=== PATIENT | female | born 1935 | race Caucasian/White ===

== ENCOUNTER 2018-04-12 05:57 | Inpatient (IN) ==
[2018-04-12] MEDS ORDERED: diphenhydrAMINE CAP 25 MG CAPSULE PO ONE (06:54)
[2018-04-12] MEDS ORDERED: ASPIRIN 325 MG TABLET PO ONE (06:54)
[2018-04-12] MEDS ORDERED: DIAZEPAM 5 MG TABLET PO ONE (06:54)
[2018-04-12] MEDS ORDERED: MAGNESIUM SULF RIDER 2 GM in PREMIX 1 EACH IV PRN (06:54)
[2018-04-12] MEDS ORDERED: POTASSIUM CHLORIDE RIDER 10 MEQ in PREMIX 1 EACH IV PRN (06:54)
[2018-04-12 07:04] LABS: Basophils % 0.6 % (0.0-0.8); Eosinophils # 0.2 10*3/uL (0.0-0.87); Eosinophils % 3.9 % (0.00-10.9); Hemoglobin 11.9 GM/DL (12.0-16.0); Immature Granulocytes % 0.2 %; Immature Granulocytes Absolute 0.01 #; Lymphocytes # 1.5 10*3/uL (1.4-4.0); Lymphocytes % 27.2 % (21.3-54.2); Mean Corpuscular HGB Conc 31.3 GM/DL (32-36); Mean Corpuscular Hemoglobin 30 PG (27-34); Mean Corpuscular Volume 96.7 FL (87-102); Mean Platelet Volume 11.9 FL (9.6-12.0); Monocytes # 0.7 10*3/uL (0.11-0.8); Monocytes % 13.1 % (1.7-12.7); Platelet Count 170 T/CUMM (130-400); Red Blood Count 3.93 MC/CUMM (3.8-5.5); Red Cell Distribution Width 13.2 % (9.3-17.3); White Blood Count 5.4 T/CUMM (4-12)
[2018-04-12 07:10] LABS: PT Patient Result 11.1 SECS
[2018-04-12 07:23] LABS: Calcium 9.4 MG/DL (8.5-10.1); Osmolality,Calculated 281.4 MOS/KG (273-304); Potassium 3.6 MMOL/L (3.5-5.1)
[2018-04-12] MEDS ORDERED: DIAZEPAM 5 MG TABLET ONE (08:00)
[2018-04-12] MEDS ORDERED: diphenhydrAMINE CAP 25 MG CAPSULE ONE (08:01)
[2018-04-12] MEDS ORDERED: HEPARIN/NACL 0.9% 2 UNITS/ML 1,000 ML IV ONE (08:11)
[2018-04-12] MEDS ORDERED: VERAPAMIL 5 MG/2 ML VIAL ONE ×2 (08:11→11:16)
[2018-04-12] MEDS ORDERED: LIDOCAINE 1% 20 ML VIAL ONE (08:11)
[2018-04-12] MEDS ORDERED: NITROGLYCERIN DRIP 50 MG/250 ML BOTTLE IV ONE (08:11)
[2018-04-12] MEDS: SODIUM CHLORIDE 0.9% 1,000 ML IV SCH (08:15)
[2018-04-12] MEDS ORDERED: MIDAZOLAM 2 MG/2 ML VIAL ONE (09:27)
[2018-04-12] MEDS ORDERED: HYDROmorphone 2 MG/1 ML VIAL ONE (09:27)
[2018-04-12] MEDS ORDERED: ENOXAPARIN 30 MG/0.3 ML SYRINGE ONE (09:39)
[2018-04-12] MEDS ORDERED: BIVALIRUDIN 250 MG VIAL IV ONE (10:00)
[2018-04-12] MEDS ORDERED: CLOPIDOGREL 300 MG TABLET ONE (10:42)
[2018-04-12] MEDS ORDERED: ACETAMINOPHEN 500 MG TABLET PO PRN (10:46)
[2018-04-12] MEDS ORDERED: ONDANSETRON 4 MG/2 ML VIAL ONE ×2 (11:49→13:35)
[2018-04-12] MEDS ORDERED: ONDANSETRON 4 MG/2 ML VIAL IV ONE ×2 (11:55→13:36)
[2018-04-12] MEDS: BENZONATATE 100 MG CAPSULE PO PRN (12:17)
[2018-04-12] MEDS ORDERED: SODIUM CHLORIDE 0.9% 1,000 ML IV SCH (13:00)
[2018-04-12] MEDS ORDERED: ATROPINE 1 MG/10 ML SYRINGE IV ONE (13:16)
[2018-04-12] MEDS ORDERED: DOPamine 800 MG/250 ML PREMIX IV PRN (13:17)
[2018-04-12] MEDS ORDERED: PHENYLEPHRINE DRIP 40 MG/250 ML PREMIX IV PRN (13:18)
[2018-04-12 13:37] LABS: Basophils % 0.2 % (0.0-0.8); Eosinophils # 0.1 10*3/uL (0.0-0.87); Eosinophils % 2.2 % (0.00-10.9); Hematocrit 25.7 VOL% (35.7-47.0); Immature Granulocytes % 0.3 %; Immature Granulocytes Absolute 0.02 #; Lymphocytes # 2.8 10*3/uL (1.4-4.0); Lymphocytes % 42.4 % (21.3-54.2); Mean Corpuscular HGB Conc 30.4 GM/DL (32-36); Mean Corpuscular Hemoglobin 31 PG (27-34); Mean Corpuscular Volume 100.4 FL (87-102); Mean Platelet Volume 12.5 FL (9.6-12.0); Monocytes # 0.7 10*3/uL (0.11-0.8); Monocytes % 10.6 % (1.7-12.7); Neutrophils # 2.9 10*3/uL (1.4-7.4); Neutrophils % 44.3 % (38.7-73.9); Platelet Count 151 T/CUMM (130-400); Red Cell Distribution Width 13.3 % (9.3-17.3); White Blood Count 6.5 T/CUMM (4-12)
[2018-04-12 13:40] LABS: Hemoglobin 7.8 GM/DL (12.0-16.0); Red Blood Count 2.56 MC/CUMM (3.8-5.5)
[2018-04-12] MEDS ORDERED: SODIUM CHLORIDE 0.9% 1,000 ML IV PRN (14:02)
[2018-04-12 14:49] LABS: Hematocrit 27.4 VOL% (35.7-47.0); Hemoglobin 8.3 GM/DL (12.0-16.0)
[2018-04-12] MEDS: PHENYLEPHRINE DRIP 40 MG/250 ML PREMIX IV PRN ×5 (14:53→23:37)
[2018-04-12] MEDS ORDERED: ONDANSETRON 4 MG/2 ML VIAL IV PRN (16:49)
[2018-04-12] MEDS ORDERED: CLORAZEPATE 3.75 MG TABLET PO PRN (17:52)
[2018-04-12 21:11] LABS: Hematocrit 42.3 VOL% (35.7-47.0)
[2018-04-12 21:12] LABS: Hemoglobin 13.4 GM/DL (12.0-16.0)
[2018-04-12] MEDS: ATORVASTATIN 40 MG TABLET PO SCH (21:37)
[2018-04-12] MEDS: METOPROLOL TARTRATE 25 MG TABLET PO SCH (21:52)
[2018-04-13 01:12] LABS: Hematocrit 36.8 VOL% (35.7-47.0); Hemoglobin 11.9 GM/DL (12.0-16.0)
[2018-04-13] MEDS: PHENYLEPHRINE DRIP 40 MG/250 ML PREMIX IV PRN ×5 (02:35→21:35)
[2018-04-13 05:08] LABS: Basophils % 0.1 % (0.0-0.8); Hematocrit 33.5 VOL% (35.7-47.0); Hemoglobin 10.7 GM/DL (12.0-16.0); Immature Granulocytes % 0.6 %; Immature Granulocytes Absolute 0.16 #; Lymphocytes # 1.1 10*3/uL (1.4-4.0); Lymphocytes % 4.4 % (21.3-54.2); Mean Corpuscular HGB Conc 31.9 GM/DL (32-36); Mean Corpuscular Hemoglobin 30 PG (27-34); Mean Corpuscular Volume 94.1 FL (87-102); Mean Platelet Volume 12.6 FL (9.6-12.0); Monocytes # 2.9 10*3/uL (0.11-0.8); Monocytes % 11.6 % (1.7-12.7); Neutrophils # 20.6 10*3/uL (1.4-7.4); Neutrophils % 83.3 % (38.7-73.9); Platelet Count 130 T/CUMM (130-400); Red Blood Count 3.56 MC/CUMM (3.8-5.5); Red Cell Distribution Width 14.8 % (9.3-17.3); White Blood Count 24.8 T/CUMM (4-12)
[2018-04-13 05:38] LABS: Hypochromasia 1+; Lymphocytes 6 % (20-55); Ovalocytes Slight; Platelet Estimate Normal; Segmented Neutrophils 85 % (50-85); Total Cells Counted 100
[2018-04-13 05:45] LABS: CKMB % 9.6 %; Calcium 8.1 MG/DL (8.5-10.1); Osmolality,Calculated 288.1 MOS/KG (273-304); Potassium 4.3 MMOL/L (3.5-5.1)
[2018-04-13 05:46] LABS: Troponin I 9.93 NG/ML (0.00-0.045)
[2018-04-13 07:20] LABS: Hematocrit 33.6 VOL% (35.7-47.0); Hemoglobin 10.6 GM/DL (12.0-16.0)
[2018-04-13] MEDS ORDERED: FUROSEMIDE 20 MG TABLET PO SCH (09:00)
[2018-04-13] MEDS ORDERED: ISOSORBIDE MONONITRATE 30 MG TABLET PO SCH (09:00)
[2018-04-13] MEDS ORDERED: LISINOPRIL 5 MG TABLET PO SCH (09:00)
[2018-04-13] MEDS: POTASSIUM CHLORIDE 10 MEQ TABLET PO SCH (11:22)
[2018-04-13] MEDS: ASCORBIC ACID 500 MG TABLET PO SCH (11:22)
[2018-04-13] MEDS: CHOLECALCIFEROL 5,000 UNIT TABLET PO SCH (11:22)
[2018-04-13 13:19] LABS: Hematocrit 29.1 VOL% (35.7-47.0); Hemoglobin 9.4 GM/DL (12.0-16.0)
[2018-04-13 14:38] LABS: Apearance,Urine CLEAR (Clear); Bilirubin,Urine Negative (Negative); Blood, Urine Negative (Negative); Glucose,Urine (UA) Negative (Negative); Hyaline Casts,Urine 1 /LPF (0-3); Ketones,Urine Negative (Negative); Mucus,Urine Occasional /LPF (Occasional); Nitrite,Urine Negative (Negative); Protein,Urine Negative; RBC,Urine 3 /HPF (0-4); Urine Color Yellow (Yellow); Urine Specific Gravity 1.032 (1.001-1.035); Urine Urobilinogen < 2.0 EU/DL (0.2-1.0); WBC,Urine 13 /HPF (0-6)
[2018-04-13] MEDS ORDERED: LOPERAMIDE 2 MG CAPSULE PO PRN (15:05)
[2018-04-13] MEDS: ATORVASTATIN 40 MG TABLET PO SCH (21:21)
[2018-04-13] MEDS: NITROGLYCERIN SL 0.4 MG TABLET SL SCH (21:22)
[2018-04-13] MEDS: SODIUM CHLORIDE 0.9% 1,000 ML IV SCH (21:24)
[2018-04-14] MEDS: PHENYLEPHRINE DRIP 40 MG/250 ML PREMIX IV PRN ×4 (02:25→20:30)
[2018-04-14 04:43] LABS: Basophils % 0.1 % (0.0-0.8); Eosinophils % 0.1 % (0.00-10.9); Hematocrit 25.3 VOL% (35.7-47.0); Hemoglobin 7.9 GM/DL (12.0-16.0); Immature Granulocytes % 0.4 %; Immature Granulocytes Absolute 0.07 #; Lymphocytes # 1.6 10*3/uL (1.4-4.0); Lymphocytes % 9.2 % (21.3-54.2); Mean Corpuscular HGB Conc 31.2 GM/DL (32-36); Mean Corpuscular Hemoglobin 30 PG (27-34); Mean Corpuscular Volume 96.9 FL (87-102); Mean Platelet Volume 13.2 FL (9.6-12.0); Monocytes # 2.6 10*3/uL (0.11-0.8); Monocytes % 14.8 % (1.7-12.7); Neutrophils # 13.2 10*3/uL (1.4-7.4); Neutrophils % 75.4 % (38.7-73.9); Platelet Count 102 T/CUMM (130-400); Red Blood Count 2.61 MC/CUMM (3.8-5.5); Red Cell Distribution Width 14.6 % (9.3-17.3); White Blood Count 17.5 T/CUMM (4-12)
[2018-04-14 06:58] LABS: CKMB % 11.2 %; Calcium 7.9 MG/DL (8.5-10.1); Osmolality,Calculated 283.3 MOS/KG (273-304); Potassium 4.2 MMOL/L (3.5-5.1)
[2018-04-14 06:59] LABS: Troponin I 5.49 NG/ML (0.00-0.045)
[2018-04-14] MEDS: SODIUM CHLORIDE 0.9% 1,000 ML IV SCH (07:21)
[2018-04-14] MEDS ORDERED: FUROSEMIDE 40 MG/4 ML VIAL IV ONE (07:51)
[2018-04-14] MEDS ORDERED: NITROGLYCERIN SL 0.4 MG TABLET SL PRN (08:07)
[2018-04-14] MEDS: POTASSIUM CHLORIDE 10 MEQ TABLET PO SCH (09:08)
[2018-04-14] MEDS: CLOPIDOGREL 75 MG TABLET PO SCH (09:08)
[2018-04-14] MEDS: CHOLECALCIFEROL 5,000 UNIT TABLET PO SCH (09:08)
[2018-04-14] MEDS: ASCORBIC ACID 500 MG TABLET PO SCH (09:08)
[2018-04-14] MEDS: ASPIRIN EC 81 MG TABLET PO SCH (09:08)
[2018-04-14 17:08] LABS: Hematocrit 25.4 VOL% (35.7-47.0); Hemoglobin 8.3 GM/DL (12.0-16.0)
[2018-04-14] MEDS: ATORVASTATIN 40 MG TABLET PO SCH (21:12)
[2018-04-15 03:51] LABS: Basophils % 0.2 % (0.0-0.8); Eosinophils # 0.2 10*3/uL (0.0-0.87); Eosinophils % 1.2 % (0.00-10.9); Hematocrit 23.8 VOL% (35.7-47.0); Hemoglobin 7.6 GM/DL (12.0-16.0); Immature Granulocytes % 0.6 %; Immature Granulocytes Absolute 0.08 #; Lymphocytes # 1.6 10*3/uL (1.4-4.0); Lymphocytes % 12.2 % (21.3-54.2); Mean Corpuscular HGB Conc 31.9 GM/DL (32-36); Mean Corpuscular Hemoglobin 30 PG (27-34); Mean Corpuscular Volume 94.8 FL (87-102); Mean Platelet Volume 12.8 FL (9.6-12.0); Monocytes # 2.1 10*3/uL (0.11-0.8); Monocytes % 15.8 % (1.7-12.7); Neutrophils # 9.3 10*3/uL (1.4-7.4); Platelet Count 97 T/CUMM (130-400); Red Blood Count 2.51 MC/CUMM (3.8-5.5); Red Cell Distribution Width 14.2 % (9.3-17.3); White Blood Count 13.3 T/CUMM (4-12)
[2018-04-15 04:09] LABS: CKMB % 5.1 %; Calcium 8.1 MG/DL (8.5-10.1); Osmolality,Calculated 280.3 MOS/KG (273-304)
[2018-04-15 04:20] LABS: Troponin I 8.26 NG/ML (0.00-0.045)
[2018-04-15 04:43] LABS: Platelet Estimate Decreased; Polychromasia Slight
[2018-04-15] MEDS ORDERED: AMIODARONE INJ 150 MG in DEXTROSE 5% 100 ML IV ONE (07:20)
[2018-04-15] MEDS ORDERED: SODIUM CHLORIDE 0.9% 1,000 ML IV PRN (07:21)
[2018-04-15] MEDS ORDERED: AMIODARONE INJ 450 MG in DEXTROSE 5% 241 ML IV SCH (07:30)
[2018-04-15] MEDS ORDERED: AMIODARONE 450 MG/9 ML VIAL IV ONE (07:32)
[2018-04-15] MEDS ORDERED: AMIODARONE 150 MG/3 ML VIAL ONE (07:32)
[2018-04-15] MEDS: ASCORBIC ACID 500 MG TABLET PO SCH (08:44)
[2018-04-15] MEDS: ASPIRIN EC 81 MG TABLET PO SCH (08:44)
[2018-04-15] MEDS: POTASSIUM CHLORIDE 10 MEQ TABLET PO SCH (08:44)
[2018-04-15] MEDS: CLOPIDOGREL 75 MG TABLET PO SCH (08:44)
[2018-04-15] MEDS: CHOLECALCIFEROL 5,000 UNIT TABLET PO SCH (08:44)
[2018-04-15] MEDS ORDERED: SODIUM CHLORIDE 0.9% IV SCH (14:30)
[2018-04-15] MEDS ORDERED: CEFTAZIDIME IV SCH (14:30)
[2018-04-15] MEDS: SODIUM CHLORIDE 0.9% 1,000 ML IV SCH (15:34)
[2018-04-15] MEDS: SPIRONOLACTONE 25 MG TABLET PO SCH (15:39)
[2018-04-15] MEDS: AMIODARONE INJ 450 MG in DEXTROSE 5% 241 ML IV SCH (16:52)
[2018-04-15] MEDS: cefTRIAXone 1,000 MG in SYRINGE 1 EACH IV SCH (18:38)
[2018-04-15] MEDS: ATORVASTATIN 40 MG TABLET PO SCH (22:00)
[2018-04-16 05:07] LABS: Basophils % 0.3 % (0.0-0.8); Eosinophils # 0.2 10*3/uL (0.0-0.87); Eosinophils % 1.6 % (0.00-10.9); Hematocrit 43.6 VOL% (35.7-47.0); Immature Granulocytes % 0.4 %; Immature Granulocytes Absolute 0.04 #; Lymphocytes # 1.2 10*3/uL (1.4-4.0); Lymphocytes % 10.8 % (21.3-54.2); Mean Corpuscular HGB Conc 32.1 GM/DL (32-36); Mean Corpuscular Hemoglobin 30 PG (27-34); Mean Corpuscular Volume 92.2 FL (87-102); Mean Platelet Volume 13.1 FL (9.6-12.0); Monocytes # 1.6 10*3/uL (0.11-0.8); Monocytes % 14.7 % (1.7-12.7); Neutrophils # 7.8 10*3/uL (1.4-7.4); Neutrophils % 72.2 % (38.7-73.9); Platelet Count 51 T/CUMM (130-400); Red Blood Count 4.73 MC/CUMM (3.8-5.5); Red Cell Distribution Width 14.6 % (9.3-17.3); White Blood Count 10.8 T/CUMM (4-12)
[2018-04-16 06:13] LABS: Calcium 8.3 MG/DL (8.5-10.1); Osmolality,Calculated 270.1 MOS/KG (273-304); Potassium 4.3 MMOL/L (3.5-5.1)
[2018-04-16 07:02] LABS: Band Neutrophils 3 % (0-10); Eosinophils 3 % (0-10); Lymphocytes 9 % (20-55); Segmented Neutrophils 79 % (50-85); Total Cells Counted 100
[2018-04-16 07:03] LABS: Anisocytosis 1+; Ovalocytes 1+; Platelet Estimate Decreased
[2018-04-16] MEDS: AMIODARONE INJ 450 MG in DEXTROSE 5% 241 ML IV SCH (08:46)
[2018-04-16] MEDS: ASCORBIC ACID 500 MG TABLET PO SCH (08:47)
[2018-04-16] MEDS: CHOLECALCIFEROL 5,000 UNIT TABLET PO SCH (08:47)
[2018-04-16] MEDS: SODIUM CHLORIDE 0.9% 1,000 ML IV SCH (08:47)
[2018-04-16] MEDS: ASPIRIN EC 81 MG TABLET PO SCH (08:47)
[2018-04-16] MEDS: CLOPIDOGREL 75 MG TABLET PO SCH (08:47)
[2018-04-16] MEDS: POTASSIUM CHLORIDE 10 MEQ TABLET PO SCH (08:47)
[2018-04-16] MEDS: SPIRONOLACTONE 25 MG TABLET PO SCH (08:47)
[2018-04-16] MEDS: BENZONATATE 100 MG CAPSULE PO PRN (08:56)
[2018-04-16] MEDS ORDERED: FUROSEMIDE 40 MG/4 ML VIAL IV ONE (09:07)
[2018-04-16] MEDS: AMIODARONE 200 MG TABLET PO SCH ×2 (09:23→21:39)
[2018-04-16] MEDS ORDERED: methylPREDNISolone SOD SUC 125 MG/2 ML VIAL IV SCH (10:00)
[2018-04-16] MEDS ORDERED: ALBUTEROL 1.25 MG/3 ML NEB RESP TX SCH (13:00)
[2018-04-16] MEDS: LEVALBUTEROL 0.63 MG/3 ML NEB RESP TX SCH ×2 (13:38→19:25)
[2018-04-16] MEDS: cefTRIAXone 1,000 MG in SYRINGE 1 EACH IV SCH (19:07)
[2018-04-16] MEDS: ATORVASTATIN 40 MG TABLET PO SCH (21:39)
[2018-04-16] MEDS: methylPREDNISolone SOD SUC 40 MG/1 ML VIAL IV SCH (21:39)
[2018-04-16] MEDS: METOPROLOL TARTRATE 25 MG TABLET PO SCH (21:39)
[2018-04-17] MEDS: LEVALBUTEROL 0.63 MG/3 ML NEB RESP TX SCH ×4 (00:27→20:15)
[2018-04-17 05:29] LABS: Basophils % 0.1 % (0.0-0.8); Hematocrit 37.1 VOL% (35.7-47.0); Immature Granulocytes % 0.5 %; Immature Granulocytes Absolute 0.05 #; Lymphocytes # 0.6 10*3/uL (1.4-4.0); Lymphocytes % 5.4 % (21.3-54.2); Mean Corpuscular HGB Conc 32.3 GM/DL (32-36); Mean Corpuscular Hemoglobin 30 PG (27-34); Mean Corpuscular Volume 91.4 FL (87-102); Mean Platelet Volume 12.7 FL (9.6-12.0); Monocytes # 1.1 10*3/uL (0.11-0.8); Monocytes % 9.7 % (1.7-12.7); Neutrophils # 9.2 10*3/uL (1.4-7.4); Neutrophils % 84.3 % (38.7-73.9); Platelet Count 146 T/CUMM (130-400); Red Blood Count 4.06 MC/CUMM (3.8-5.5); Red Cell Distribution Width 13.8 % (9.3-17.3); White Blood Count 10.9 T/CUMM (4-12)
[2018-04-17 05:46] LABS: Calcium 8.6 MG/DL (8.5-10.1); Osmolality,Calculated 280.5 MOS/KG (273-304); Potassium 4.1 MMOL/L (3.5-5.1)
[2018-04-17] MEDS: FUROSEMIDE 40 MG/4 ML VIAL IV SCH (08:50)
[2018-04-17] MEDS: methylPREDNISolone SOD SUC 40 MG/1 ML VIAL IV SCH ×2 (08:51→20:06)
[2018-04-17] MEDS: SPIRONOLACTONE 25 MG TABLET PO SCH (08:52)
[2018-04-17] MEDS: AMIODARONE 200 MG TABLET PO SCH ×2 (08:52→20:07)
[2018-04-17] MEDS: METOPROLOL TARTRATE 25 MG TABLET PO SCH ×2 (08:52→20:07)
[2018-04-17] MEDS: ASPIRIN EC 81 MG TABLET PO SCH (08:52)
[2018-04-17] MEDS: CHOLECALCIFEROL 5,000 UNIT TABLET PO SCH (08:52)
[2018-04-17] MEDS: CLOPIDOGREL 75 MG TABLET PO SCH (08:53)
[2018-04-17] MEDS: ASCORBIC ACID 500 MG TABLET PO SCH (08:53)
[2018-04-17] MEDS: POTASSIUM CHLORIDE 10 MEQ TABLET PO SCH (08:53)
[2018-04-17] MEDS: cefTRIAXone 1,000 MG in SYRINGE 1 EACH IV SCH (17:30)
[2018-04-17] MEDS: ATORVASTATIN 40 MG TABLET PO SCH (20:07)
[2018-04-18] MEDS: LEVALBUTEROL 0.63 MG/3 ML NEB RESP TX SCH ×4 (02:00→19:08)
[2018-04-18 05:10] LABS: Basophils % 0.1 % (0.0-0.8); Hematocrit 37.9 VOL% (35.7-47.0); Immature Granulocytes % 0.7 %; Lymphocytes # 0.5 10*3/uL (1.4-4.0); Lymphocytes % 3.5 % (21.3-54.2); Mean Corpuscular HGB Conc 31.7 GM/DL (32-36); Mean Corpuscular Hemoglobin 30 PG (27-34); Mean Corpuscular Volume 93.3 FL (87-102); Mean Platelet Volume 12.5 FL (9.6-12.0); Monocytes # 1.1 10*3/uL (0.11-0.8); Monocytes % 8.2 % (1.7-12.7); Neutrophils # 12.1 10*3/uL (1.4-7.4); Neutrophils % 87.5 % (38.7-73.9); Platelet Count 181 T/CUMM (130-400); Red Blood Count 4.06 MC/CUMM (3.8-5.5); Red Cell Distribution Width 13.9 % (9.3-17.3); White Blood Count 13.8 T/CUMM (4-12)
[2018-04-18 05:24] LABS: Calcium 8.9 MG/DL (8.5-10.1); Osmolality,Calculated 284.4 MOS/KG (273-304); Potassium 3.8 MMOL/L (3.5-5.1)
[2018-04-18 06:24] LABS: Anisocytosis 1+; Band Neutrophils 3 % (0-10); Lymphocytes 3 % (20-55); Segmented Neutrophils 89 % (50-85); Total Cells Counted 100
[2018-04-18 06:25] LABS: Ovalocytes 1+; Platelet Estimate Adequate
[2018-04-18] MEDS: methylPREDNISolone SOD SUC 40 MG/1 ML VIAL IV SCH ×2 (09:24→21:00)
[2018-04-18] MEDS: FUROSEMIDE 40 MG/4 ML VIAL IV SCH (09:25)
[2018-04-18] MEDS: CHOLECALCIFEROL 5,000 UNIT TABLET PO SCH (09:26)
[2018-04-18] MEDS: SPIRONOLACTONE 25 MG TABLET PO SCH (09:26)
[2018-04-18] MEDS: ASCORBIC ACID 500 MG TABLET PO SCH (09:26)
[2018-04-18] MEDS: POTASSIUM CHLORIDE 10 MEQ TABLET PO SCH (09:26)
[2018-04-18] MEDS: AMIODARONE 200 MG TABLET PO SCH ×2 (09:26→21:01)
[2018-04-18] MEDS: METOPROLOL TARTRATE 25 MG TABLET PO SCH ×2 (09:27→21:01)
[2018-04-18] MEDS ORDERED: CLOPIDOGREL 300 MG TABLET PO ONE (11:05)
[2018-04-18] MEDS: ASPIRIN CHEW 81 MG TABLET PO SCH (12:26)
[2018-04-18] MEDS: cefTRIAXone 1,000 MG in SYRINGE 1 EACH IV SCH (17:38)
[2018-04-18] MEDS: ATORVASTATIN 40 MG TABLET PO SCH (21:01)
[2018-04-19] MEDS: LEVALBUTEROL 0.63 MG/3 ML NEB RESP TX SCH ×3 (00:21→15:03)
[2018-04-19 06:22] LABS: Basophils % 0.1 % (0.0-0.8); Hematocrit 39.7 VOL% (35.7-47.0); Hemoglobin 12.7 GM/DL (12.0-16.0); Immature Granulocytes % 0.6 %; Immature Granulocytes Absolute 0.08 #; Lymphocytes # 0.5 10*3/uL (1.4-4.0); Mean Corpuscular Hemoglobin 30 PG (27-34); Mean Corpuscular Volume 93.6 FL (87-102); Mean Platelet Volume 12.4 FL (9.6-12.0); Monocytes # 1.3 10*3/uL (0.11-0.8); Monocytes % 9.3 % (1.7-12.7); Neutrophils # 11.5 10*3/uL (1.4-7.4); Platelet Count 203 T/CUMM (130-400); Red Blood Count 4.24 MC/CUMM (3.8-5.5); Red Cell Distribution Width 14.2 % (9.3-17.3); White Blood Count 13.4 T/CUMM (4-12)
[2018-04-19 06:53] LABS: Calcium 9.1 MG/DL (8.5-10.1); Osmolality,Calculated 282.7 MOS/KG (273-304); Potassium 4.2 MMOL/L (3.5-5.1)
[2018-04-19 07:02] LABS: Hypochromasia 1+; Lymphocytes 4 % (20-55); Ovalocytes Slight; Platelet Estimate Adequate; Segmented Neutrophils 88 % (50-85); Total Cells Counted 100
[2018-04-19] MEDS ORDERED: CLOPIDOGREL 75 MG TABLET PO SCH (09:00)
[2018-04-19] MEDS: ASPIRIN CHEW 81 MG TABLET PO SCH (09:16)
[2018-04-19] MEDS: POTASSIUM CHLORIDE 10 MEQ TABLET PO SCH (09:16)
[2018-04-19] MEDS: METOPROLOL TARTRATE 25 MG TABLET PO SCH (09:16)
[2018-04-19] MEDS: FUROSEMIDE 40 MG/4 ML VIAL IV SCH (09:17)
[2018-04-19] MEDS: AMIODARONE 200 MG TABLET PO SCH (09:17)
[2018-04-19] MEDS: SPIRONOLACTONE 25 MG TABLET PO SCH (09:17)
[2018-04-19] MEDS: methylPREDNISolone SOD SUC 40 MG/1 ML VIAL IV SCH (09:17)
[2018-04-19] MEDS: CHOLECALCIFEROL 5,000 UNIT TABLET PO SCH (09:17)
[2018-04-19] MEDS: ASCORBIC ACID 500 MG TABLET PO SCH (09:17)
[2018-04-19] MEDS ORDERED: AMOXICILLIN/CLAV 875 MG TABLET PO SCH (11:30)
[2018-04-19] MEDS ORDERED: CEFUROXIME 250 MG TABLET PO SCH (12:00)
[2018-04-19 12:01] VITALS: BP 136/61
[2018-04-20] MEDS ORDERED: FUROSEMIDE 40 MG TABLET PO SCH (09:00)
== END 2018-04-19 15:02 | disposition home or self-care (01) | DRG 981 ==
LOC: N.CL 05:57 → N.CC 14:00 → N.TELEN 04-16 11:46
PROVIDERS: ADMIT Internal Medicine Cardiovascular Disease; ATTEND Internal Medicine Cardiovascular Disease

== ENCOUNTER 2020-09-04 00:47 | Inpatient (IN) ==
[2020-09-04 02:06] LABS: Basophils % 0.3 % (0.0-0.8); Eosinophils # 0.1 10*3/uL (0.0-0.87); Eosinophils % 0.7 % (0.00-10.9); Hematocrit 38.1 VOL% (35.7-47.0); Hemoglobin 11.7 GM/DL (12.0-16.0); Immature Granulocytes % 0.4 %; Immature Granulocytes Absolute 0.03 #; Lymphocytes # 0.5 10*3/uL (1.4-4.0); Mean Corpuscular HGB Conc 30.7 GM/DL (32-36); Mean Corpuscular Volume 99.5 FL (87-102); Mean Platelet Volume 11.8 FL (9.6-12.0); Monocytes % 7.1 % (1.7-12.7); Neutrophils % 84.5 % (38.7-73.9); Platelet Count 227 T/CUMM (130-400); Red Blood Count 3.83 MC/CUMM (3.8-5.5); Red Cell Distribution Width 14.6 % (9.3-17.3)
[2020-09-04 02:25] LABS: Bacteria,Urine Moderate /HPF (Few); Bilirubin,Urine Negative (Negative); Blood, Urine Negative (Negative); Glucose,Urine (UA) Negative (Negative); Hyaline Casts,Urine 8 /LPF (0-3); Ketones,Urine Negative (Negative); Mucus,Urine Few /LPF (Occasional); Nitrite,Urine Negative (Negative); Protein,Urine 100 MG/DL; RBC,Urine 6 /HPF (0-4); Squamous Epithelial Cell,Urine Occasional /HPF (0-10); Urine Appearance CLOUDY (Clear); Urine Color Amber (Yellow); Urine Specific Gravity 1.018 (1.001-1.035)
[2020-09-04] MEDS ORDERED: cefTRIAXone 1,000 MG in SODIUM CHLORIDE 0.9% 100 ML IV STA (02:29)
[2020-09-04 02:47] LABS: Alanine Aminotransferase 88 U/L (13-56); Albumin 3.2 G/DL (3.4-5.0); Alkaline Phosphatase 209 U/L (45-117); Aspartate Amino Transferase 135 U/L (0-37); Blood Urea Nitrogen 38 MG/DL (7-18); Calcium 8.7 MG/DL (8.5-10.1); Carbon Dioxide 19 MMOL/L (21-32); Estimated Glom Filtration Rate 29 ML/MIN; Glucose 164 MG/DL (74-106); Osmolality,Calculated 287.7 MOS/KG (273-304); Potassium 4.9 MMOL/L (3.5-5.1); Sodium 138 MMOL/L (136-145); Total Protein 6.7 G/DL (6.4-8.2)
[2020-09-04] MEDS ORDERED: PIPERACILLIN/TAZOBACTAM 3,375 MG in SODIUM CHLORIDE 0.9% 100 ML IV STA (02:54)
[2020-09-04] MEDS ORDERED: SODIUM CHLORIDE 0.9% 1,000 ML IV STA (02:55)
[2020-09-04] MEDS ORDERED: GLUCAGON 1 MG VIAL IM PRN (07:26)
[2020-09-04] MEDS ORDERED: ONDANSETRON 4 MG/2 ML VIAL IV PRN (07:26)
[2020-09-04] MEDS ORDERED: DEXTROSE 50% 25 GM/50 ML VIAL IV PRN (07:26)
[2020-09-04] MEDS ORDERED: DOCUSATE SODIUM 100 MG CAPSULE PO PRN (07:26)
[2020-09-04] MEDS ORDERED: ACETAMINOPHEN 325 MG TABLET PO PRN (07:26)
[2020-09-04] MEDS ORDERED: traZODone 50 MG TABLET PO PRN (07:26)
[2020-09-04] MEDS ORDERED: SODIUM CHLORIDE 0.9% 800 ML IV ONE (07:39)
[2020-09-04] MEDS: ENOXAPARIN 30 MG/0.3 ML SYRINGE SUBCUT SCH (08:02)
[2020-09-04 08:06] LABS: Risk Ratio 3.5; Thyroid Stimulating Hormone 1.92 uIU/ml (0.358-3.74); VLDL CHOLESTEROL 22.2 MG/DL
[2020-09-04] MEDS ORDERED: MOMETASONE 50 MCG NASAL SPRAY 17 GM BOTTLE BOTH NARES PRN (08:15)
[2020-09-04] MEDS ORDERED: AZITHROMYCIN INJ 500 MG in SODIUM CHLORIDE 0.9% 250 ML IV SCH (08:30)
[2020-09-04] MEDS: SODIUM CHLORIDE 0.9% 1,000 ML IV SCH ×2 (08:45→13:20)
[2020-09-04] MEDS ORDERED: PANTOPRAZOLE 40 MG TABLET PO SCH (09:00)
[2020-09-04 09:05] LABS: Hepatitis B Core IgM Quant < 0.05 Index; Hepatitis B Surface Ag Quant < 0.10 Index; Hepatitis B Surface Ag Result Non-Reactive (NonReactive); Hepatitis C Virus Ab Quant 0.04 Index; Hepatitis C Virus Ab Result Non-Reactive (NonReactive)
[2020-09-04] MEDS: guaiFENesin/DM ER 600-30 MG TABLET PO SCH ×2 (09:20→20:15)
[2020-09-04] MEDS: ASPIRIN EC 81 MG TABLET PO SCH (09:20)
[2020-09-04] MEDS: ASCORBIC ACID 500 MG TABLET PO SCH (09:20)
[2020-09-04] MEDS ORDERED: NOREPINEPHRINE 4 MG/4 ML VIAL IV ONE (09:52)
[2020-09-04] MEDS ORDERED: MIDAZOLAM 2 MG/2 ML VIAL IV STA (10:11)
[2020-09-04] MEDS ORDERED: MIDAZOLAM 2 MG/2 ML VIAL ONE (10:11)
[2020-09-04] MEDS: NOREPINEPHRINE 8 MG in SODIUM CHLORIDE 0.9% 242 ML IV PRN (10:15)
[2020-09-04] MEDS: MIDAZOLAM 100 MG in SODIUM CHLORIDE 0.9% 80 ML IV PRN (10:42)
[2020-09-04] MEDS ORDERED: ALBUTEROL 2.5 MG/3 ML NEB RESP TX PRN (10:55)
[2020-09-04] MEDS ORDERED: HEPARIN/NACL 0.9% 2 UNITS/ML 1,000 UNIT/500 ML BAG IV ONE (10:56)
[2020-09-04 11:12] LABS: ABG Base Excess -9.5 MMOL/L (-2.5-2.5); ABG HCO3 15.6 MMOL/L (20-26); ABG Oxygen Saturation 9.9 % (95-100); ABG PCO2 38.4 MM HG (35-48); ABG PH 7.256 (7.35-7.45)
[2020-09-04 11:17] LABS: ABG PO2 < 17.0 MM HG (80-95)
[2020-09-04 12:17] LABS: ABG Base Excess -15.2 MMOL/L (-2.5-2.5); ABG HCO3 12.8 MMOL/L (20-26); ABG PCO2 22.7 MM HG (35-48); ABG PH 7.271 (7.35-7.45); ABG TCO2 9.6 MMOL/L (23-27)
[2020-09-04] MEDS: PANTOPRAZOLE 40 MG VIAL IV SCH (13:19)
[2020-09-04] MEDS: ALBUTEROL 2.5 MG/3 ML NEB RESP TX SCH ×2 (13:37→19:29)
[2020-09-04 14:07] LABS: ABG Base Excess -13.4 MMOL/L (-2.5-2.5); ABG HCO3 14.1 MMOL/L (20-26); ABG Oxygen Saturation 99.8 % (95-100); ABG PCO2 24.8 MM HG (35-48); ABG TCO2 10.9 MMOL/L (23-27)
[2020-09-04] MEDS ORDERED: FUROSEMIDE 40 MG/4 ML VIAL IV ONE (18:43)
[2020-09-04] MEDS: DEXAMETHASONE 4 MG/1 ML VIAL IV SCH (19:35)
[2020-09-04] MEDS ORDERED: ATORVASTATIN 40 MG TABLET PO SCH (21:00)
[2020-09-04 21:47] LABS: Bacteria,Urine Occasional /HPF (Few); Bilirubin,Urine Negative (Negative); Blood, Urine Negative (Negative); Glucose,Urine (UA) 50 mg/dL (Negative); Ketones,Urine Negative (Negative); Mucus,Urine Occasional /LPF (Occasional); Nitrite,Urine Negative (Negative); Protein,Urine 100 MG/DL; RBC,Urine 12 /HPF (0-4); Squamous Epithelial Cell,Urine Occasional /HPF (0-10); Urine Appearance CLOUDY (Clear); Urine Color Amber (Yellow); Urine Specific Gravity 1.013 (1.001-1.035); Urine Urobilinogen < 2.0 EU/DL (0.2-1.0)
[2020-09-05] MEDS: ALBUTEROL 2.5 MG/3 ML NEB RESP TX SCH ×4 (01:04→19:35)
[2020-09-05] MEDS: DEXAMETHASONE 4 MG/1 ML VIAL IV SCH ×4 (02:00→20:02)
[2020-09-05 03:57] LABS: ABG Base Excess -9.9 MMOL/L (-2.5-2.5); ABG HCO3 16.6 MMOL/L (20-26); ABG PCO2 28.6 MM HG (35-48); ABG PH 7.328 (7.35-7.45); ABG TCO2 13.8 MMOL/L (23-27)
[2020-09-05 04:07] LABS: Basophils % 0.1 % (0.0-0.8); Hematocrit 32.7 VOL% (35.7-47.0); Hemoglobin 10.1 GM/DL (12.0-16.0); Immature Granulocytes % 0.9 %; Immature Granulocytes Absolute 0.09 #; Lymphocytes # 0.2 10*3/uL (1.4-4.0); Lymphocytes % 2.2 % (21.3-54.2); Mean Corpuscular HGB Conc 30.9 GM/DL (32-36); Mean Corpuscular Volume 99.1 FL (87-102); Mean Platelet Volume 11.5 FL (9.6-12.0); Monocytes % 3.4 % (1.7-12.7); Neutrophils % 93.4 % (38.7-73.9); Platelet Count 194 T/CUMM (130-400); Red Cell Distribution Width 14.7 % (9.3-17.3); White Blood Count 10.4 T/CUMM (4-12)
[2020-09-05 04:29] LABS: Segmented Neutrophils 95 % (50-85); Total Cells Counted 100
[2020-09-05 04:30] LABS: Platelet Estimate Adequate
[2020-09-05 04:31] LABS: Ovalocytes Slight
[2020-09-05 04:34] LABS: Albumin 2.7 G/DL (3.4-5.0); Bilirubin,Total 1.1 MG/DL (0.2-1.0); Calcium 7.7 MG/DL (8.5-10.1); Osmolality,Calculated 295.3 MOS/KG (273-304); Potassium 4.7 MMOL/L (3.5-5.1); Total Protein 5.9 G/DL (6.4-8.2)
[2020-09-05 04:47] LABS: Albumin 2.7 G/DL (3.4-5.0); Bilirubin,Direct 0.32 MG/DL (0.0-0.20); Bilirubin,Indirect 0.4 MG/DL (0.0-1.0); Bilirubin,Total 0.7 MG/DL (0.2-1.0); Total Protein 5.8 G/DL (6.4-8.2)
[2020-09-05] MEDS: cefTRIAXone 1,000 MG in SODIUM CHLORIDE 0.9% 100 ML IV SCH (08:32)
[2020-09-05] MEDS: ENOXAPARIN 30 MG/0.3 ML SYRINGE SUBCUT SCH (08:34)
[2020-09-05] MEDS: ASCORBIC ACID 500 MG TABLET PO SCH (08:34)
[2020-09-05] MEDS: CLOPIDOGREL 75 MG TABLET PO SCH (08:35)
[2020-09-05] MEDS: ASPIRIN EC 81 MG TABLET PO SCH (08:35)
[2020-09-05] MEDS: guaiFENesin/DM ER 600-30 MG TABLET PO SCH ×2 (08:35→20:02)
[2020-09-05] MEDS: SODIUM CHLORIDE 0.9% 1,000 ML IV SCH ×2 (08:48→11:06)
[2020-09-05] MEDS ORDERED: LIDOCAINE 1% 20 ML VIAL ONE (10:36)
[2020-09-05] MEDS ORDERED: HEPARIN/NACL 0.9% 2 UNITS/ML 2,000 UNIT/1,000 ML BAG IV ONE (10:36)
[2020-09-05 10:50] LABS: ABG Base Excess -11.1 MMOL/L (-2.5-2.5); ABG HCO3 15.7 MMOL/L (20-26); ABG Oxygen Saturation 99.4 % (95-100)
[2020-09-05] MEDS ORDERED: CLOPIDOGREL 300 MG TABLET ONE (11:48)
[2020-09-05] MEDS: PANTOPRAZOLE 40 MG VIAL IV SCH (12:20)
[2020-09-05] MEDS: NOREPINEPHRINE 8 MG in SODIUM CHLORIDE 0.9% 242 ML IV PRN (15:27)
[2020-09-06] MEDS: ALBUTEROL 2.5 MG/3 ML NEB RESP TX SCH ×4 (00:20→20:42)
[2020-09-06] MEDS: DEXAMETHASONE 4 MG/1 ML VIAL IV SCH ×3 (02:47→20:17)
[2020-09-06] MEDS: SODIUM CHLORIDE 0.9% 1,000 ML IV SCH ×3 (02:49→20:16)
[2020-09-06 04:11] LABS: Basophils % 0.1 % (0.0-0.8); Hematocrit 31.5 VOL% (35.7-47.0); Hemoglobin 9.9 GM/DL (12.0-16.0); Immature Granulocytes % 0.6 %; Immature Granulocytes Absolute 0.08 #; Lymphocytes # 0.1 10*3/uL (1.4-4.0); Mean Corpuscular HGB Conc 31.4 GM/DL (32-36); Mean Corpuscular Volume 99.1 FL (87-102); Monocytes % 4.6 % (1.7-12.7); NRBC # 0.08 10*3/uL; Neutrophils % 93.7 % (38.7-73.9); Platelet Count 225 T/CUMM (130-400); Red Blood Count 3.18 MC/CUMM (3.8-5.5); Red Cell Distribution Width 15.3 % (9.3-17.3); White Blood Count 13.4 T/CUMM (4-12)
[2020-09-06 04:29] LABS: Albumin 2.6 G/DL (3.4-5.0); Bilirubin,Total 0.6 MG/DL (0.2-1.0); Calcium 7.8 MG/DL (8.5-10.1); Osmolality,Calculated 304.7 MOS/KG (273-304); Potassium 4.6 MMOL/L (3.5-5.1); Total Protein 5.8 G/DL (6.4-8.2)
[2020-09-06 04:36] LABS: Band Neutrophils 2 % (0-10); Lymphocytes 1 % (20-55); Segmented Neutrophils 91 % (50-85); Total Cells Counted 100
[2020-09-06 04:37] LABS: Acanthocytes Few; Burr Cells Few; Microcytosis Slight; Ovalocytes Slight
[2020-09-06 04:38] LABS: Platelet Estimate Normal
[2020-09-06 04:38] LABS: ABG Base Excess -10.6 MMOL/L (-2.5-2.5); ABG Oxygen Saturation 99.8 % (95-100); ABG PCO2 25.7 MM HG (35-48); ABG PH 7.342 (7.35-7.45); ABG TCO2 12.7 MMOL/L (23-27); Allen Test Positive; Pt O2 Delivery Device Ventilator
[2020-09-06] MEDS: ENOXAPARIN 30 MG/0.3 ML SYRINGE SUBCUT SCH (08:21)
[2020-09-06] MEDS: ASPIRIN EC 81 MG TABLET PO SCH (08:22)
[2020-09-06] MEDS: ASCORBIC ACID 500 MG TABLET PO SCH (08:22)
[2020-09-06] MEDS: guaiFENesin/DM ER 600-30 MG TABLET PO SCH ×2 (08:22→20:17)
[2020-09-06] MEDS: CLOPIDOGREL 75 MG TABLET PO SCH (08:22)
[2020-09-06] MEDS: cefTRIAXone 1,000 MG in SODIUM CHLORIDE 0.9% 100 ML IV SCH (08:26)
[2020-09-06] MEDS ORDERED: FUROSEMIDE 40 MG/4 ML VIAL IV ONE (08:37)
[2020-09-06] MEDS: PANTOPRAZOLE 40 MG VIAL IV SCH (09:09)
[2020-09-06] MEDS: MIDAZOLAM 100 MG in SODIUM CHLORIDE 0.9% 80 ML IV PRN (09:49)
[2020-09-06] MEDS: INSULIN REGULAR 100 UNIT/ML SUBCUT SCH (18:20)
[2020-09-07] MEDS: ALBUTEROL 2.5 MG/3 ML NEB RESP TX SCH ×5 (00:32→19:49)
[2020-09-07 04:10] LABS: Albumin 2.7 G/DL (3.4-5.0); Bilirubin,Total 0.7 MG/DL (0.2-1.0); Calcium 8.2 MG/DL (8.5-10.1); Osmolality,Calculated 311.4 MOS/KG (273-304); Potassium 3.6 MMOL/L (3.5-5.1); Total Protein 5.6 G/DL (6.4-8.2)
[2020-09-07 04:36] LABS: Allen Test Positive; Pt O2 Delivery Device Ventilator
[2020-09-07 04:38] LABS: ABG Base Excess -7.6 MMOL/L (-2.5-2.5); ABG HCO3 16.1 MMOL/L (20-26); ABG Oxygen Saturation 98.2 % (95-100); ABG PCO2 26.9 MM HG (35-48); ABG PH 7.396 (7.35-7.45); ABG PO2 114.9 MM HG (80-95)
[2020-09-07] MEDS: INSULIN REGULAR 100 UNIT/ML SUBCUT SCH ×5 (05:58→23:26)
[2020-09-07] MEDS: NOREPINEPHRINE 8 MG in SODIUM CHLORIDE 0.9% 242 ML IV PRN (08:05)
[2020-09-07] MEDS: cefTRIAXone 1,000 MG in SODIUM CHLORIDE 0.9% 100 ML IV SCH (09:45)
[2020-09-07] MEDS: DEXAMETHASONE 4 MG/1 ML VIAL IV SCH ×2 (09:45→20:30)
[2020-09-07] MEDS: ASCORBIC ACID 500 MG TABLET PO SCH (09:45)
[2020-09-07] MEDS: FUROSEMIDE 40 MG/4 ML VIAL IV SCH ×2 (09:45→17:50)
[2020-09-07] MEDS: ENOXAPARIN 30 MG/0.3 ML SYRINGE SUBCUT SCH (09:45)
[2020-09-07] MEDS: CLOPIDOGREL 75 MG TABLET PO SCH (09:45)
[2020-09-07] MEDS: PANTOPRAZOLE 40 MG VIAL IV SCH (09:45)
[2020-09-07] MEDS: ASPIRIN EC 81 MG TABLET PO SCH (09:45)
[2020-09-07] MEDS: guaiFENesin/DM ER 600-30 MG TABLET PO SCH ×2 (09:45→22:31)
[2020-09-07] MEDS: SODIUM CHLORIDE 0.9% 1,000 ML IV SCH (15:37)
[2020-09-08] MEDS: ALBUTEROL 2.5 MG/3 ML NEB RESP TX SCH ×4 (02:21→19:17)
[2020-09-08 04:02] LABS: ABG Base Excess -3.7 MMOL/L (-2.5-2.5); ABG HCO3 18.8 MMOL/L (20-26); ABG Oxygen Saturation 98.8 % (95-100); ABG PH 7.478 (7.35-7.45); ABG PO2 153.9 MM HG (80-95); ABG TCO2 19.6 MMOL/L (23-27); Allen Test Positive; Pt O2 Delivery Device Ventilator
[2020-09-08 04:11] LABS: Basophils % 0.1 % (0.0-0.8); Hematocrit 29.4 VOL% (35.7-47.0); Hemoglobin 9.3 GM/DL (12.0-16.0); Immature Granulocytes % 0.6 %; Immature Granulocytes Absolute 0.09 #; Lymphocytes # 0.1 10*3/uL (1.4-4.0); Lymphocytes % 0.5 % (21.3-54.2); Mean Corpuscular HGB Conc 31.6 GM/DL (32-36); Mean Corpuscular Volume 97.7 FL (87-102); Mean Platelet Volume 11.9 FL (9.6-12.0); Monocytes % 7.2 % (1.7-12.7); NRBC # 0.04 10*3/uL; Neutrophils % 91.6 % (38.7-73.9); Platelet Count 175 T/CUMM (130-400); Red Blood Count 3.01 MC/CUMM (3.8-5.5); White Blood Count 14.6 T/CUMM (4-12)
[2020-09-08] MEDS: MIDAZOLAM 100 MG in SODIUM CHLORIDE 0.9% 80 ML IV PRN (04:17)
[2020-09-08 04:24] LABS: Calcium 8.4 MG/DL (8.5-10.1); Osmolality,Calculated 310.6 MOS/KG (273-304); Potassium 3.8 MMOL/L (3.5-5.1)
[2020-09-08 04:37] LABS: Hypochromasia Slight; Lymphocytes 1 % (20-55); Microcytosis 1+; Ovalocytes Few; Segmented Neutrophils 95 % (50-85); Total Cells Counted 100
[2020-09-08 04:38] LABS: Platelet Estimate Adequate
[2020-09-08] MEDS: INSULIN REGULAR 100 UNIT/ML SUBCUT SCH ×4 (05:57→23:35)
[2020-09-08] MEDS: ASCORBIC ACID 500 MG TABLET PO SCH (09:30)
[2020-09-08] MEDS: ENOXAPARIN 30 MG/0.3 ML SYRINGE SUBCUT SCH (09:50)
[2020-09-08] MEDS: PANTOPRAZOLE 40 MG VIAL IV SCH (09:50)
[2020-09-08] MEDS: ASPIRIN EC 81 MG TABLET PO SCH (09:50)
[2020-09-08] MEDS: guaiFENesin/DM ER 600-30 MG TABLET PO SCH ×2 (09:50→20:35)
[2020-09-08] MEDS: DEXAMETHASONE 4 MG/1 ML VIAL IV SCH ×2 (09:50→20:35)
[2020-09-08] MEDS: CLOPIDOGREL 75 MG TABLET PO SCH (09:50)
[2020-09-08] MEDS: cefTRIAXone 1,000 MG in SODIUM CHLORIDE 0.9% 100 ML IV SCH (10:02)
[2020-09-09] MEDS: ALBUTEROL 2.5 MG/3 ML NEB RESP TX SCH ×4 (00:47→20:04)
[2020-09-09 04:19] LABS: Basophils % 0.1 % (0.0-0.8); Hematocrit 30.9 VOL% (35.7-47.0); Hemoglobin 9.3 GM/DL (12.0-16.0); Immature Granulocytes % 0.6 %; Lymphocytes # 0.1 10*3/uL (1.4-4.0); Lymphocytes % 0.8 % (21.3-54.2); Mean Corpuscular HGB Conc 30.1 GM/DL (32-36); Mean Corpuscular Volume 101.3 FL (87-102); Mean Platelet Volume 12.6 FL (9.6-12.0); Monocytes % 9.3 % (1.7-12.7); NRBC # 0.04 10*3/uL; Neutrophils % 89.2 % (38.7-73.9); Platelet Count 151 T/CUMM (130-400); Red Blood Count 3.05 MC/CUMM (3.8-5.5); Red Cell Distribution Width 16.6 % (9.3-17.3); White Blood Count 16.2 T/CUMM (4-12)
[2020-09-09 04:33] LABS: Calcium 8.5 MG/DL (8.5-10.1); Potassium 3.9 MMOL/L (3.5-5.1)
[2020-09-09 04:40] LABS: Hypochromasia Slight; Lymphocytes 3 % (20-55); Macrocytosis Slight; Platelet Estimate Normal; Segmented Neutrophils 95 % (50-85); Total Cells Counted 100
[2020-09-09 05:07] LABS: ABG Base Excess -1.4 MMOL/L (-2.5-2.5); ABG HCO3 21.8 MMOL/L (20-26); ABG Oxygen Saturation 98.4 % (95-100); ABG PCO2 31.5 MM HG (35-48); ABG PH 7.459 (7.35-7.45); ABG TCO2 22.8 MMOL/L (23-27)
[2020-09-09] MEDS: INSULIN REGULAR 100 UNIT/ML SUBCUT SCH ×4 (06:22→23:15)
[2020-09-09] MEDS: cefTRIAXone 1,000 MG in SODIUM CHLORIDE 0.9% 100 ML IV SCH (09:13)
[2020-09-09] MEDS: PANTOPRAZOLE 40 MG VIAL IV SCH (09:14)
[2020-09-09] MEDS: ENOXAPARIN 30 MG/0.3 ML SYRINGE SUBCUT SCH (09:15)
[2020-09-09] MEDS: ASPIRIN EC 81 MG TABLET PO SCH (09:15)
[2020-09-09] MEDS: FUROSEMIDE 40 MG/4 ML VIAL IV SCH (09:15)
[2020-09-09] MEDS: DEXAMETHASONE 4 MG/1 ML VIAL IV SCH ×2 (09:15→20:15)
[2020-09-09] MEDS: ASCORBIC ACID 500 MG TABLET PO SCH (09:16)
[2020-09-09] MEDS: CLOPIDOGREL 75 MG TABLET PO SCH (09:16)
[2020-09-09] MEDS: guaiFENesin/DM ER 600-30 MG TABLET PO SCH ×2 (09:16→20:15)
[2020-09-09] MEDS: MORPHINE 4 MG/1 ML VIAL IV PRN ×2 (12:30→21:17)
[2020-09-10] MEDS: ALBUTEROL 2.5 MG/3 ML NEB RESP TX SCH ×4 (00:30→19:05)
[2020-09-10] MEDS: MIDAZOLAM 100 MG in SODIUM CHLORIDE 0.9% 80 ML IV PRN (00:43)
[2020-09-10 03:09] LABS: ABG Base Excess 1.1 MMOL/L (-2.5-2.5); ABG HCO3 25.4 MMOL/L (20-26); ABG Oxygen Saturation 99.3 % (95-100); ABG TCO2 23.7 MMOL/L (23-27)
[2020-09-10 04:45] LABS: Basophils % 0.1 % (0.0-0.8); Hematocrit 29.6 VOL% (35.7-47.0); Immature Granulocytes % 0.8 %; Immature Granulocytes Absolute 0.11 #; Lymphocytes # 0.1 10*3/uL (1.4-4.0); Lymphocytes % 0.9 % (21.3-54.2); Mean Corpuscular HGB Conc 30.4 GM/DL (32-36); Mean Corpuscular Volume 102.1 FL (87-102); Mean Platelet Volume 12.3 FL (9.6-12.0); Monocytes % 6.6 % (1.7-12.7); NRBC # 0.02 10*3/uL; Neutrophils % 91.6 % (38.7-73.9); Platelet Count 119 T/CUMM (130-400); Red Cell Distribution Width 16.8 % (9.3-17.3)
[2020-09-10 05:02] LABS: Calcium 8.2 MG/DL (8.5-10.1); Osmolality,Calculated 320.1 MOS/KG (273-304); Potassium 4.3 MMOL/L (3.5-5.1)
[2020-09-10 05:05] LABS: Band Neutrophils 1 % (0-10); Hypochromasia Slight; Lymphocytes 1 % (20-55); Segmented Neutrophils 94 % (50-85); Total Cells Counted 100
[2020-09-10 05:06] LABS: Acanthocytes Few; Anisocytosis 1+; Microcytosis 1+; Ovalocytes Few; Platelet Estimate Adequate; Polychromasia Slight
[2020-09-10] MEDS: INSULIN REGULAR 100 UNIT/ML SUBCUT SCH ×3 (06:12→18:12)
[2020-09-10] MEDS: cefTRIAXone 1,000 MG in SODIUM CHLORIDE 0.9% 100 ML IV SCH (09:15)
[2020-09-10] MEDS: PANTOPRAZOLE 40 MG VIAL IV SCH (09:24)
[2020-09-10] MEDS: DEXAMETHASONE 4 MG/1 ML VIAL IV SCH ×2 (09:24→20:28)
[2020-09-10] MEDS: FUROSEMIDE 40 MG/4 ML VIAL IV SCH (09:24)
[2020-09-10] MEDS: ENOXAPARIN 30 MG/0.3 ML SYRINGE SUBCUT SCH (09:25)
[2020-09-10] MEDS: ASCORBIC ACID 500 MG TABLET PO SCH (09:49)
[2020-09-10] MEDS: ASPIRIN EC 81 MG TABLET PO SCH (09:49)
[2020-09-10] MEDS: CLOPIDOGREL 75 MG TABLET PO SCH (09:49)
[2020-09-10] MEDS: guaiFENesin/DM ER 600-30 MG TABLET PO SCH ×2 (09:49→20:28)
[2020-09-10] MEDS: NOREPINEPHRINE 8 MG in SODIUM CHLORIDE 0.9% 242 ML IV PRN (12:18)
[2020-09-10] MEDS: METOCLOPRAMIDE 10 MG/2 ML VIAL IV SCH ×2 (12:40→17:12)
[2020-09-10] MEDS: MORPHINE 4 MG/1 ML VIAL IV PRN (14:48)
[2020-09-11] MEDS: METOCLOPRAMIDE 10 MG/2 ML VIAL IV SCH ×4 (00:39→18:23)
[2020-09-11] MEDS: INSULIN REGULAR 100 UNIT/ML SUBCUT SCH ×5 (00:39→23:40)
[2020-09-11] MEDS: ALBUTEROL 2.5 MG/3 ML NEB RESP TX SCH ×4 (00:43→19:24)
[2020-09-11] MEDS: MORPHINE 4 MG/1 ML VIAL IV PRN ×3 (03:35→21:06)
[2020-09-11 04:25] LABS: Allen Test Positive; Pt O2 Delivery Device Ventilator
[2020-09-11 04:26] LABS: ABG Base Excess 2.3 MMOL/L (-2.5-2.5); ABG HCO3 27.5 MMOL/L (20-26); ABG Oxygen Saturation 98.5 % (95-100); ABG PCO2 45.3 MM HG (35-48); ABG PH 7.401 (7.35-7.45); ABG TCO2 28.9 MMOL/L (23-27)
[2020-09-11 05:59] LABS: Basophils % 0.1 % (0.0-0.8); Hematocrit 33.4 VOL% (35.7-47.0); Hemoglobin 9.9 GM/DL (12.0-16.0); Immature Granulocytes % 0.7 %; Immature Granulocytes Absolute 0.11 #; Lymphocytes # 0.1 10*3/uL (1.4-4.0); Lymphocytes % 0.5 % (21.3-54.2); Mean Corpuscular HGB Conc 29.6 GM/DL (32-36); Mean Corpuscular Volume 103.1 FL (87-102); Mean Platelet Volume 13.4 FL (9.6-12.0); Monocytes % 4.8 % (1.7-12.7); NRBC # 0.03 10*3/uL; Neutrophils % 93.9 % (38.7-73.9); Platelet Count 144 T/CUMM (130-400); Red Blood Count 3.24 MC/CUMM (3.8-5.5); Red Cell Distribution Width 16.6 % (9.3-17.3); White Blood Count 16.4 T/CUMM (4-12)
[2020-09-11 06:22] LABS: Lymphocytes 2 % (20-55); Platelet Estimate Normal; Segmented Neutrophils 97 % (50-85); Total Cells Counted 100
[2020-09-11 06:40] LABS: Calcium 8.4 MG/DL (8.5-10.1); Osmolality,Calculated 319.4 MOS/KG (273-304); Potassium 4.1 MMOL/L (3.5-5.1)
[2020-09-11] MEDS: MIDAZOLAM 100 MG in SODIUM CHLORIDE 0.9% 80 ML IV PRN (06:55)
[2020-09-11] MEDS: DEXAMETHASONE 4 MG/1 ML VIAL IV SCH ×2 (08:57→20:25)
[2020-09-11] MEDS: PANTOPRAZOLE 40 MG VIAL IV SCH (08:57)
[2020-09-11] MEDS: FUROSEMIDE 40 MG/4 ML VIAL IV SCH (08:57)
[2020-09-11] MEDS: ENOXAPARIN 30 MG/0.3 ML SYRINGE SUBCUT SCH (08:57)
[2020-09-11] MEDS: ASCORBIC ACID 500 MG TABLET PO SCH (09:02)
[2020-09-11] MEDS: guaiFENesin/DM ER 600-30 MG TABLET PO SCH ×2 (09:02→20:25)
[2020-09-11] MEDS: CLOPIDOGREL 75 MG TABLET PO SCH (09:02)
[2020-09-11] MEDS: cefTRIAXone 1,000 MG in SODIUM CHLORIDE 0.9% 100 ML IV SCH (09:06)
[2020-09-11] MEDS: ASPIRIN CHEW 81 MG TABLET PO SCH (09:06)
[2020-09-12] MEDS: ALBUTEROL 2.5 MG/3 ML NEB RESP TX SCH ×4 (00:05→19:58)
[2020-09-12] MEDS: METOCLOPRAMIDE 10 MG/2 ML VIAL IV SCH ×5 (00:05→23:52)
[2020-09-12 04:12] LABS: ABG HCO3 29.8 MMOL/L (20-26); ABG Oxygen Saturation 98.9 % (95-100); ABG PCO2 40.3 MM HG (35-48); ABG PH 7.487 (7.35-7.45); ABG PO2 145.4 MM HG (80-95); ABG TCO2 31.1 MMOL/L (23-27); Allen Test Positive; Pt O2 Delivery Device Ventilator
[2020-09-12 05:42] LABS: Basophils % 0.1 % (0.0-0.8); Hematocrit 33.8 VOL% (35.7-47.0); Hemoglobin 10.1 GM/DL (12.0-16.0); Immature Granulocytes % 0.8 %; Lymphocytes # 0.1 10*3/uL (1.4-4.0); Lymphocytes % 0.5 % (21.3-54.2); Mean Corpuscular HGB Conc 29.9 GM/DL (32-36); Mean Corpuscular Volume 102.7 FL (87-102); Mean Platelet Volume 13.6 FL (9.6-12.0); Monocytes % 5.7 % (1.7-12.7); NRBC # 0.02 10*3/uL; Neutrophils % 92.9 % (38.7-73.9); Platelet Count 152 T/CUMM (130-400); Red Blood Count 3.29 MC/CUMM (3.8-5.5); Red Cell Distribution Width 16.7 % (9.3-17.3); White Blood Count 24.1 T/CUMM (4-12)
[2020-09-12 05:53] LABS: Calcium 8.6 MG/DL (8.5-10.1); Osmolality,Calculated 315.4 MOS/KG (273-304); Potassium 4.7 MMOL/L (3.5-5.1)
[2020-09-12] MEDS: INSULIN REGULAR 100 UNIT/ML SUBCUT SCH ×5 (05:58→23:51)
[2020-09-12 06:04] LABS: Hypochromasia Slight; Platelet Estimate Adequate; Segmented Neutrophils 97 % (50-85); Total Cells Counted 100
[2020-09-12 06:05] LABS: Ovalocytes Slight
[2020-09-12] MEDS: cefTRIAXone 1,000 MG in SODIUM CHLORIDE 0.9% 100 ML IV SCH (08:23)
[2020-09-12] MEDS: ASPIRIN CHEW 81 MG TABLET PO SCH (08:23)
[2020-09-12] MEDS: ENOXAPARIN 30 MG/0.3 ML SYRINGE SUBCUT SCH (08:23)
[2020-09-12] MEDS: CLOPIDOGREL 75 MG TABLET PO SCH (08:23)
[2020-09-12] MEDS: ASCORBIC ACID 500 MG TABLET PO SCH (08:23)
[2020-09-12] MEDS: PANTOPRAZOLE 40 MG VIAL IV SCH (08:27)
[2020-09-12] MEDS: DEXAMETHASONE 4 MG/1 ML VIAL IV SCH ×2 (08:31→20:04)
[2020-09-12] MEDS: FUROSEMIDE 40 MG/4 ML VIAL IV SCH (09:15)
[2020-09-12] MEDS: guaiFENesin 200 MG/10 ML UDCUP PER TUBE SCH ×2 (09:51→20:38)
[2020-09-12] MEDS: guaiFENesin/DM ER 600-30 MG TABLET PO SCH (11:46)
[2020-09-12] MEDS ORDERED: LEVOFLOXACIN INJ 750 MG/150 ML PREMIX IV SCH (16:30)
[2020-09-13] MEDS: ALBUTEROL 2.5 MG/3 ML NEB RESP TX SCH ×4 (01:29→19:34)
[2020-09-13 03:46] LABS: ABG Base Excess 9.2 MMOL/L (-2.5-2.5); ABG PCO2 41.5 MM HG (35-48); ABG TCO2 30.3 MMOL/L (23-27)
[2020-09-13 04:53] LABS: Hematocrit 30.9 VOL% (35.7-47.0); Hemoglobin 9.3 GM/DL (12.0-16.0); Immature Granulocytes % 0.7 %; Immature Granulocytes Absolute 0.15 #; Lymphocytes # 0.1 10*3/uL (1.4-4.0); Lymphocytes % 0.7 % (21.3-54.2); Mean Corpuscular HGB Conc 30.1 GM/DL (32-36); Mean Corpuscular Volume 101.3 FL (87-102); Mean Platelet Volume 13.7 FL (9.6-12.0); Monocytes % 4.9 % (1.7-12.7); Neutrophils % 93.7 % (38.7-73.9); Platelet Count 118 T/CUMM (130-400); Red Blood Count 3.05 MC/CUMM (3.8-5.5); Red Cell Distribution Width 16.4 % (9.3-17.3); White Blood Count 20.1 T/CUMM (4-12)
[2020-09-13 05:02] LABS: Calcium 8.5 MG/DL (8.5-10.1); Osmolality,Calculated 309.7 MOS/KG (273-304); Potassium 4.2 MMOL/L (3.5-5.1)
[2020-09-13 05:13] LABS: Lymphocytes 2 % (20-55); Platelet Estimate Normal; Segmented Neutrophils 96 % (50-85); Total Cells Counted 100
[2020-09-13] MEDS: INSULIN REGULAR 100 UNIT/ML SUBCUT SCH ×3 (05:32→18:16)
[2020-09-13] MEDS: METOCLOPRAMIDE 10 MG/2 ML VIAL IV SCH ×3 (05:40→18:23)
[2020-09-13] MEDS: CLOPIDOGREL 75 MG TABLET PO SCH (08:00)
[2020-09-13] MEDS: ASCORBIC ACID 500 MG TABLET PO SCH (08:00)
[2020-09-13] MEDS: ASPIRIN CHEW 81 MG TABLET PO SCH (08:00)
[2020-09-13] MEDS: ENOXAPARIN 30 MG/0.3 ML SYRINGE SUBCUT SCH (08:01)
[2020-09-13] MEDS: PANTOPRAZOLE 40 MG VIAL IV SCH (08:08)
[2020-09-13] MEDS: DEXAMETHASONE 4 MG/1 ML VIAL IV SCH ×2 (08:10→21:04)
[2020-09-13] MEDS: FUROSEMIDE 40 MG/4 ML VIAL IV SCH (08:15)
[2020-09-13] MEDS: guaiFENesin 200 MG/10 ML UDCUP PER TUBE SCH ×2 (08:47→21:05)
[2020-09-13] MEDS: METOPROLOL TARTRATE 25 MG TABLET PO SCH ×2 (10:55→21:05)
[2020-09-14] MEDS: INSULIN REGULAR 100 UNIT/ML SUBCUT SCH ×3 (00:02→14:37)
[2020-09-14] MEDS: METOCLOPRAMIDE 10 MG/2 ML VIAL IV SCH ×2 (00:07→05:55)
[2020-09-14] MEDS: ALBUTEROL 2.5 MG/3 ML NEB RESP TX SCH ×3 (00:28→13:24)
[2020-09-14 05:17] LABS: Osmolality,Calculated 315.4 MOS/KG (273-304)
[2020-09-14] MEDS: ENOXAPARIN 30 MG/0.3 ML SYRINGE SUBCUT SCH (08:27)
[2020-09-14] MEDS: PANTOPRAZOLE 40 MG VIAL IV SCH (08:27)
[2020-09-14] MEDS: DEXAMETHASONE 4 MG/1 ML VIAL IV SCH (08:28)
[2020-09-14] MEDS: METOPROLOL TARTRATE 25 MG TABLET PO SCH (08:29)
[2020-09-14] MEDS: CLOPIDOGREL 75 MG TABLET PO SCH (08:29)
[2020-09-14] MEDS: ASCORBIC ACID 500 MG TABLET PO SCH (08:29)
[2020-09-14] MEDS: ASPIRIN CHEW 81 MG TABLET PO SCH (08:29)
[2020-09-14] MEDS: guaiFENesin 200 MG/10 ML UDCUP PER TUBE SCH (08:30)
[2020-09-14 15:35] VITALS: BP 94/63
[2020-09-15] MEDS ORDERED: FUROSEMIDE 40 MG/4 ML VIAL IV SCH (09:00)
[2020-09-15] MEDS ORDERED: DEXAMETHASONE 4 MG/1 ML VIAL IV SCH (09:00)
== END 2020-09-14 15:27 | DRG 250 ==
LOC: EDUNIT# → EDBD → N.ED 00:47 → N.EDINP 07:26 → SUATTDRO 07:26 → N.ICU 10:41
PROVIDERS: ADMIT Hospitalist; ATTEND Family Medicine

== ENCOUNTER 2020-10-12 10:37 | Inpatient (IN) ==
[2020-10-12 12:28] LABS: Basophils % 0.2 % (0.0-0.8); Eosinophils % 0.1 % (0.00-10.9); Hematocrit 27.3 VOL% (35.7-47.0); Hemoglobin 8.5 GM/DL (12.0-16.0); Immature Granulocytes % 0.7 %; Immature Granulocytes Absolute 0.06 #; Lymphocytes # 0.7 10*3/uL (1.4-4.0); Lymphocytes % 8.5 % (21.3-54.2); Mean Corpuscular HGB Conc 31.1 GM/DL (32-36); Mean Corpuscular Volume 96.5 FL (87-102); Mean Platelet Volume 12.3 FL (9.6-12.0); Monocytes % 5.1 % (1.7-12.7); Neutrophils % 85.4 % (38.7-73.9); Platelet Count 128 T/CUMM (130-400); Red Blood Count 2.83 MC/CUMM (3.8-5.5); Red Cell Distribution Width 18.4 % (9.3-17.3); White Blood Count 8.6 T/CUMM (4-12)
[2020-10-12 12:29] LABS: Bacteria,Urine Many /HPF (Few); Bilirubin,Urine Negative (Negative); Blood, Urine Negative (Negative); Glucose,Urine (UA) Negative (Negative); Ketones,Urine Negative (Negative); Mucus,Urine Many /LPF (Occasional); Nitrite,Urine Negative (Negative); Protein,Urine 30 MG/DL; Squamous Epithelial Cell,Urine Occasional /HPF (0-10); Urine Appearance CLOUDY (Clear); Urine Color Amber (Yellow); Urine Specific Gravity 1.019 (1.001-1.035); Urine Urobilinogen < 2.0 EU/DL (0.2-1.0)
[2020-10-12 12:50] LABS: Calcium 7.8 MG/DL (8.5-10.1); Osmolality,Calculated 286.3 MOS/KG (273-304); Potassium 4.4 MMOL/L (3.5-5.1)
[2020-10-12] MEDS ORDERED: cefTRIAXone 1,000 MG in SODIUM CHLORIDE 0.9% 100 ML IV STA (13:13)
[2020-10-12] MEDS ORDERED: ONDANSETRON 4 MG/2 ML VIAL IV PRN (14:05)
[2020-10-12] MEDS ORDERED: DEXTROSE 50% 25 GM/50 ML VIAL IV PRN (14:05)
[2020-10-12] MEDS ORDERED: ACETAMINOPHEN 325 MG TABLET PO PRN (14:05)
[2020-10-12] MEDS ORDERED: LACTULOSE 20 GM/30 ML UDCUP PO PRN (14:05)
[2020-10-12] MEDS ORDERED: ZALEPLON 5 MG CAPSULE PO PRN (14:23)
[2020-10-12] MEDS: PIPERACILLIN/TAZOBACTAM 3,375 MG in SODIUM CHLORIDE 0.9% 100 ML IV SCH ×2 (14:45→23:01)
[2020-10-12] MEDS ORDERED: NITROGLYCERIN SL 0.4 MG TABLET SL PRN (16:02)
[2020-10-12] MEDS ORDERED: ASPIRIN 325 MG TABLET PO ONE (16:52)
[2020-10-12] MEDS: ALBUTEROL/IPRATROPIUM 3 ML NEB RESP TX SCH ×2 (20:04→23:55)
[2020-10-12] MEDS: ESCITALOPRAM 10 MG TABLET PO SCH (21:04)
[2020-10-12] MEDS: guaiFENesin 200 MG/10 ML UDCUP PO SCH (21:04)
[2020-10-12] MEDS: METOPROLOL TARTRATE 25 MG TABLET PO SCH (21:04)
[2020-10-12] MEDS: ATORVASTATIN 40 MG TABLET PO SCH (21:05)
[2020-10-12] MEDS: DOCUSATE SODIUM 100 MG CAPSULE PO SCH (21:05)
[2020-10-12] MEDS: ZINC OXIDE PASTE 113 GM TUBE TOP SCH (21:34)
[2020-10-13] MEDS: guaiFENesin 200 MG/10 ML UDCUP PO SCH ×6 (00:02→22:37)
[2020-10-13] MEDS: PIPERACILLIN/TAZOBACTAM 3,375 MG in SODIUM CHLORIDE 0.9% 100 ML IV SCH (06:02)
[2020-10-13] MEDS: ALBUTEROL/IPRATROPIUM 3 ML NEB RESP TX SCH ×3 (07:10→19:46)
[2020-10-13 07:15] LABS: Basophils % 0.2 % (0.0-0.8); Eosinophils % 0.4 % (0.00-10.9); Hematocrit 26.3 VOL% (35.7-47.0); Hemoglobin 7.9 GM/DL (12.0-16.0); Immature Granulocytes Absolute 0.08 #; Lymphocytes # 0.8 10*3/uL (1.4-4.0); Lymphocytes % 9.1 % (21.3-54.2); Mean Corpuscular Volume 97.4 FL (87-102); Mean Platelet Volume 12.5 FL (9.6-12.0); Monocytes % 6.2 % (1.7-12.7); Neutrophils % 83.1 % (38.7-73.9); Platelet Count 119 T/CUMM (130-400); Red Cell Distribution Width 18.5 % (9.3-17.3); White Blood Count 8.4 T/CUMM (4-12)
[2020-10-13 07:52] LABS: Calcium 7.9 MG/DL (8.5-10.1); Osmolality,Calculated 281.4 MOS/KG (273-304); Potassium 4.4 MMOL/L (3.5-5.1)
[2020-10-13] MEDS: DOCUSATE SODIUM 100 MG CAPSULE PO SCH ×2 (10:18→22:37)
[2020-10-13] MEDS: PANTOPRAZOLE 40 MG TABLET PO SCH (10:18)
[2020-10-13] MEDS: METOPROLOL TARTRATE 25 MG TABLET PO SCH ×2 (10:18→22:37)
[2020-10-13] MEDS: CHOLECALCIFEROL 5,000 UNIT TABLET PO SCH (10:18)
[2020-10-13] MEDS: ASPIRIN EC 81 MG TABLET PO SCH (10:18)
[2020-10-13] MEDS: ASCORBIC ACID 500 MG TABLET PO SCH (10:21)
[2020-10-13] MEDS: ZINC OXIDE PASTE 113 GM TUBE TOP SCH ×2 (10:21→22:38)
[2020-10-13 11:54] LABS: % Iron Saturation 18.8 % (18-50)
[2020-10-13] MEDS ORDERED: LOSARTAN 25 MG TABLET PO SCH (12:00)
[2020-10-13] MEDS: CLOPIDOGREL 75 MG TABLET PO SCH (12:20)
[2020-10-13] MEDS ORDERED: SODIUM CHLORIDE 0.9% 1,000 ML IV PRN (13:55)
[2020-10-13 14:31] LABS: % Iron Saturation 16.7 % (18-50); Ferritin 614.9 ng/ml (8-252); Folate 11.69 NG/ML (5.38-24.0)
[2020-10-13] MEDS ORDERED: MAGNESIUM HYDROXIDE SUSP 30 ML UDCUP PO PRN (14:39)
[2020-10-13] MEDS: FUROSEMIDE 40 MG/4 ML VIAL IV SCH (15:27)
[2020-10-13] MEDS: MEROPENEM 500 MG in SODIUM CHLORIDE 0.9% 100 ML IV SCH ×2 (15:28→22:32)
[2020-10-13] MEDS: ESCITALOPRAM 10 MG TABLET PO SCH (22:37)
[2020-10-13] MEDS: ATORVASTATIN 40 MG TABLET PO SCH (22:37)
[2020-10-14] MEDS: guaiFENesin 200 MG/10 ML UDCUP PO SCH ×5 (00:05→15:40)
[2020-10-14] MEDS: ALBUTEROL/IPRATROPIUM 3 ML NEB RESP TX SCH ×3 (00:18→12:10)
[2020-10-14] MEDS: MEROPENEM 500 MG in SODIUM CHLORIDE 0.9% 100 ML IV SCH ×4 (03:06→22:00)
[2020-10-14 06:27] LABS: Osmolality,Calculated 272.1 MOS/KG (273-304); Potassium 4.7 MMOL/L (3.5-5.1)
[2020-10-14 06:28] LABS: Risk Ratio 3.85
[2020-10-14] MEDS: FUROSEMIDE 40 MG/4 ML VIAL IV SCH ×2 (09:35→15:20)
[2020-10-14] MEDS: ASPIRIN EC 81 MG TABLET PO SCH (09:37)
[2020-10-14] MEDS: DOCUSATE SODIUM 100 MG CAPSULE PO SCH (09:37)
[2020-10-14] MEDS: CHOLECALCIFEROL 5,000 UNIT TABLET PO SCH (09:37)
[2020-10-14] MEDS: POTASSIUM CHLORIDE 10 MEQ TABLET PO SCH (09:37)
[2020-10-14] MEDS: PANTOPRAZOLE 40 MG TABLET PO SCH (09:37)
[2020-10-14] MEDS: METOPROLOL TARTRATE 25 MG TABLET PO SCH (09:38)
[2020-10-14] MEDS: CLOPIDOGREL 75 MG TABLET PO SCH (09:38)
[2020-10-14] MEDS: ASCORBIC ACID 500 MG TABLET PO SCH (09:38)
[2020-10-14] MEDS: ZINC OXIDE PASTE 113 GM TUBE TOP SCH ×2 (09:39→21:00)
[2020-10-14 10:04] LABS: Basophils % 0.4 % (0.0-0.8); Eosinophils % 0.5 % (0.00-10.9); Hematocrit 29.9 VOL% (35.7-47.0); Hemoglobin 9.3 GM/DL (12.0-16.0); Immature Granulocytes % 0.7 %; Immature Granulocytes Absolute 0.06 #; Lymphocytes # 0.4 10*3/uL (1.4-4.0); Lymphocytes % 4.4 % (21.3-54.2); Mean Corpuscular HGB Conc 31.1 GM/DL (32-36); Mean Platelet Volume 12.2 FL (9.6-12.0); Monocytes % 4.4 % (1.7-12.7); Neutrophils % 89.6 % (38.7-73.9); Platelet Count 100 T/CUMM (130-400); Red Blood Count 3.05 MC/CUMM (3.8-5.5); Red Cell Distribution Width 17.2 % (9.3-17.3); White Blood Count 8.4 T/CUMM (4-12)
[2020-10-14 12:04] LABS: Eosinophils 1 % (0-10); Lymphocytes 3 % (20-55); Ovalocytes 1+; Platelet Estimate Adequate; Polychromasia Slight; Schistocytes Slight; Segmented Neutrophils 92 % (50-85); Total Cells Counted 100
[2020-10-14] MEDS: SUCRALFATE 1 GM/10 ML UDCUP PO SCH (18:44)
[2020-10-14] MEDS ORDERED: ENOXAPARIN 100 MG/ML SYRINGE SUBCUT SCH (19:30)
[2020-10-14] MEDS: DILTIAZEM INJ 100 MG in SODIUM CHLORIDE 0.9% 100 ML IV SCH (19:51)
[2020-10-15] MEDS: ENOXAPARIN 60 MG/0.6 ML SYRINGE SUBCUT SCH ×2 (00:07→10:16)
[2020-10-15] MEDS: ATORVASTATIN 40 MG TABLET PO SCH ×2 (00:07→22:27)
[2020-10-15] MEDS: ESCITALOPRAM 10 MG TABLET PO SCH ×2 (00:07→22:27)
[2020-10-15] MEDS: METOPROLOL TARTRATE 25 MG TABLET PO SCH ×3 (00:07→22:27)
[2020-10-15] MEDS: ALBUTEROL/IPRATROPIUM 3 ML NEB RESP TX SCH ×4 (00:08→19:11)
[2020-10-15] MEDS: DOCUSATE SODIUM 100 MG CAPSULE PO SCH ×3 (00:08→22:28)
[2020-10-15] MEDS: guaiFENesin 200 MG/10 ML UDCUP PO SCH ×8 (00:08→22:29)
[2020-10-15] MEDS: SUCRALFATE 1 GM/10 ML UDCUP PO SCH ×5 (00:08→22:28)
[2020-10-15] MEDS ORDERED: SODIUM CHLORIDE 0.9% 1,000 ML IV ONE (01:14)
[2020-10-15] MEDS: MEROPENEM 500 MG in SODIUM CHLORIDE 0.9% 100 ML IV SCH ×2 (04:00→10:18)
[2020-10-15 05:30] LABS: Basophils % 0.1 % (0.0-0.8); Eosinophils % 0.2 % (0.00-10.9); Hematocrit 29.3 VOL% (35.7-47.0); Hemoglobin 9.2 GM/DL (12.0-16.0); Immature Granulocytes Absolute 0.09 #; Lymphocytes # 0.6 10*3/uL (1.4-4.0); Lymphocytes % 6.5 % (21.3-54.2); Mean Corpuscular HGB Conc 31.4 GM/DL (32-36); Mean Corpuscular Volume 95.8 FL (87-102); Mean Platelet Volume 12.8 FL (9.6-12.0); Monocytes % 5.2 % (1.7-12.7); Platelet Count 106 T/CUMM (130-400); Red Blood Count 3.06 MC/CUMM (3.8-5.5); White Blood Count 8.8 T/CUMM (4-12)
[2020-10-15 06:01] LABS: Albumin 2.1 G/DL (3.4-5.0); Bilirubin,Total 1.2 MG/DL (0.20-1.00); Calcium 8.1 MG/DL (8.5-10.1); Elliptocytes Few; Hypochromasia 1+; Microcytosis 1+; Osmolality,Calculated 277.7 MOS/KG (273-304); Platelet Estimate Decreased; Potassium 2.9 MMOL/L (3.5-5.1); Total Protein 5.5 G/DL (6.4-8.2)
[2020-10-15] MEDS: POTASSIUM CHLORIDE 20 MEQ TABLET PO ONE ×2 (10:00→11:33)
[2020-10-15] MEDS: FUROSEMIDE 40 MG/4 ML VIAL IV SCH ×2 (10:00→17:31)
[2020-10-15] MEDS: ASCORBIC ACID 500 MG TABLET PO SCH (10:15)
[2020-10-15] MEDS: CLOPIDOGREL 75 MG TABLET PO SCH (10:15)
[2020-10-15] MEDS: ZINC OXIDE PASTE 113 GM TUBE TOP SCH ×2 (10:15→22:29)
[2020-10-15] MEDS: CHOLECALCIFEROL 5,000 UNIT TABLET PO SCH (10:15)
[2020-10-15] MEDS: ASPIRIN EC 81 MG TABLET PO SCH (10:16)
[2020-10-15] MEDS: POTASSIUM CHLORIDE 10 MEQ TABLET PO SCH (10:17)
[2020-10-15] MEDS ORDERED: MAGNESIUM SULF RIDER 2 GM/50 ML PREMIX IV ONE (10:27)
[2020-10-15] MEDS: APIXABAN 2.5 MG TABLET PO SCH (22:28)
[2020-10-15] MEDS: DILTIAZEM INJ 100 MG in SODIUM CHLORIDE 0.9% 100 ML IV SCH (23:12)
[2020-10-16] MEDS: guaiFENesin 200 MG/10 ML UDCUP PO SCH ×6 (00:53→22:33)
[2020-10-16] MEDS: ALBUTEROL/IPRATROPIUM 3 ML NEB RESP TX SCH ×4 (01:01→18:24)
[2020-10-16 04:34] LABS: Basophils % 0.2 % (0.0-0.8); Eosinophils % 0.4 % (0.00-10.9); Hematocrit 30.8 VOL% (35.7-47.0); Hemoglobin 9.8 GM/DL (12.0-16.0); Immature Granulocytes % 0.9 %; Immature Granulocytes Absolute 0.08 #; Lymphocytes # 0.5 10*3/uL (1.4-4.0); Lymphocytes % 5.9 % (21.3-54.2); Mean Corpuscular HGB Conc 31.8 GM/DL (32-36); Mean Corpuscular Volume 94.5 FL (87-102); Mean Platelet Volume 12.4 FL (9.6-12.0); Monocytes % 3.6 % (1.7-12.7); Platelet Count 143 T/CUMM (130-400); Red Blood Count 3.26 MC/CUMM (3.8-5.5); Red Cell Distribution Width 17.2 % (9.3-17.3); White Blood Count 8.5 T/CUMM (4-12)
[2020-10-16 05:09] LABS: Calcium 8.1 MG/DL (8.5-10.1); Osmolality,Calculated 278.8 MOS/KG (273-304); Potassium 3.2 MMOL/L (3.5-5.1)
[2020-10-16] MEDS ORDERED: POTASSIUM CHLORIDE 20 MEQ TABLET PO ONE (07:26)
[2020-10-16] MEDS ORDERED: DIGOXIN 0.25 MG TABLET PO ONE (08:43)
[2020-10-16] MEDS: FUROSEMIDE 40 MG/4 ML VIAL IV SCH (08:50)
[2020-10-16] MEDS: SPIRONOLACTONE 25 MG TABLET PO SCH (13:27)
[2020-10-16] MEDS: METOPROLOL TARTRATE 25 MG TABLET PO SCH (13:28)
[2020-10-16] MEDS: AMIODARONE 200 MG TABLET PO SCH ×2 (13:30→22:34)
[2020-10-16] MEDS: CLOPIDOGREL 75 MG TABLET PO SCH (13:32)
[2020-10-16] MEDS: APIXABAN 2.5 MG TABLET PO SCH ×2 (13:32→22:32)
[2020-10-16] MEDS: SUCRALFATE 1 GM/10 ML UDCUP PO SCH ×3 (13:37→22:33)
[2020-10-16] MEDS: ZINC OXIDE PASTE 113 GM TUBE TOP SCH ×2 (13:38→22:34)
[2020-10-16] MEDS: DOCUSATE SODIUM 100 MG CAPSULE PO SCH ×2 (13:38→22:33)
[2020-10-16] MEDS: ASCORBIC ACID 500 MG TABLET PO SCH (13:39)
[2020-10-16] MEDS: CHOLECALCIFEROL 5,000 UNIT TABLET PO SCH (13:39)
[2020-10-16] MEDS ORDERED: DIGOXIN 0.5 MG/2 ML AMP IV ONE (20:59)
[2020-10-16] MEDS: FAMOTIDINE 20 MG TABLET PO SCH (22:32)
[2020-10-16] MEDS: ATORVASTATIN 40 MG TABLET PO SCH (22:33)
[2020-10-16] MEDS: ESCITALOPRAM 10 MG TABLET PO SCH (22:33)
[2020-10-16] MEDS: DILTIAZEM INJ 100 MG in SODIUM CHLORIDE 0.9% 100 ML IV SCH (22:34)
[2020-10-17] MEDS: guaiFENesin 200 MG/10 ML UDCUP PO SCH ×4 (00:39→13:41)
[2020-10-17] MEDS: ALBUTEROL/IPRATROPIUM 3 ML NEB RESP TX SCH ×3 (01:45→13:23)
[2020-10-17 05:31] LABS: Basophils % 0.3 % (0.0-0.8); Eosinophils % 0.3 % (0.00-10.9); Hemoglobin 9.5 GM/DL (12.0-16.0); Immature Granulocytes % 1.6 %; Immature Granulocytes Absolute 0.11 #; Lymphocytes # 0.6 10*3/uL (1.4-4.0); Lymphocytes % 8.2 % (21.3-54.2); Mean Corpuscular HGB Conc 30.6 GM/DL (32-36); Mean Corpuscular Volume 97.2 FL (87-102); Mean Platelet Volume 12.6 FL (9.6-12.0); Monocytes % 4.4 % (1.7-12.7); Neutrophils % 85.2 % (38.7-73.9); Platelet Count 168 T/CUMM (130-400); Red Blood Count 3.19 MC/CUMM (3.8-5.5); Red Cell Distribution Width 17.2 % (9.3-17.3); White Blood Count 6.8 T/CUMM (4-12)
[2020-10-17 05:53] LABS: Calcium 8.6 MG/DL (8.5-10.1); Osmolality,Calculated 283.5 MOS/KG (273-304); Potassium 4.1 MMOL/L (3.5-5.1)
[2020-10-17 05:55] LABS: Hypochromasia 1+
[2020-10-17 05:56] LABS: Microcytosis 1+; Ovalocytes Few; Platelet Estimate Adequate
[2020-10-17] MEDS: SUCRALFATE 1 GM/10 ML UDCUP PO SCH ×2 (08:06→13:41)
[2020-10-17] MEDS: CHOLECALCIFEROL 5,000 UNIT TABLET PO SCH (08:07)
[2020-10-17] MEDS: SPIRONOLACTONE 25 MG TABLET PO SCH (08:07)
[2020-10-17] MEDS: CLOPIDOGREL 75 MG TABLET PO SCH (08:07)
[2020-10-17] MEDS: ASCORBIC ACID 500 MG TABLET PO SCH (08:07)
[2020-10-17] MEDS: FAMOTIDINE 20 MG TABLET PO SCH (08:07)
[2020-10-17] MEDS: AMIODARONE 200 MG TABLET PO SCH (08:08)
[2020-10-17] MEDS: APIXABAN 2.5 MG TABLET PO SCH (08:08)
[2020-10-17] MEDS: DOCUSATE SODIUM 100 MG CAPSULE PO SCH (08:08)
[2020-10-17] MEDS: ZINC OXIDE PASTE 113 GM TUBE TOP SCH (08:14)
[2020-10-17] MEDS ORDERED: SODIUM CHLORIDE 0.9% 1,000 ML IV SCH (10:30)
[2020-10-17 12:12] VITALS: BP 102/57
== END 2020-10-17 14:06 | disposition swing bed (61) | DRG 292 ==
LOC: EDBD → EDUNIT# → N.ED 10:37 → N.EDINP 14:05 → SUATTDRO 14:05 → N.EDINP 17:13 → N.5E 17:51 → N.TELEN 10-14 19:14
PROVIDERS: ADMIT Internal Medicine; ATTEND Internal Medicine Geriatric Medicine